=== PATIENT | male | born 1960 ===

== ENCOUNTER 2016-06-26 10:23 | Observation (INO) | payer MEDICARE ==
[2016-06-26 10:27] VITALS: BMI 30.9
--- NOTE | 2016-06-26 10:38 | ED PDOC ---
Arrival/HPI - General Chief Complaint: High Blood Pressure Time Seen by Provider: 06/26/16 10:26 Historian: Patient - History of Present Illness Narrative History of Present Illness (Text): 06/26/16 10:35 56yo male with PMHx of hypertension present with complaint of elevated BP, chest pain and tingling of his fingers x 5days. Pain is intermittent, tightness , and non reproductive. Denies exacerbating/relieving factors. States he is currently on Lisinopril and another antihypertensive. States he currently don't have a Doctor and have not seen any recently. Denies focal weakness, nausea, vomiting, diaphoresis, aphasia, headache, dizziness, visual changes, abdominal pain, LE edema, calf pain, AU, orthopnea, any other complaint. States he took one tab of ASA this morning, which he takes every day. Past Medical History - Provider Review Nursing Documentation Reviewed: Yes - Infectious Disease Hx of Infectious Diseases: None - Cardiac Hx Hypertension: Yes - Psychiatric Hx Substance Use: No - Surgical History Hx Appendectomy: Yes Other/Comment: disc surgery - Anesthesia Hx Anesthesia Reactions: No Hx Malignant Hyperthermia: No Family/Social History - Physician Review Nursing Documentation Reviewed: Yes Family/Social History: Unknown Family HX Smoking Status: Never Smoked Hx Alcohol Use: No Frequency of alcohol use: Socially Hx Substance Use: No Allergies/Home Meds Allergies/Adverse Reactions: Allergies No Known Allergies Allergy (Verified 06/26/16 10:27) Home Medications: Home Meds Medication Instructions Recorded Confirmed Aspirin [Ecotrin] 81 mg PO DAILY 06/26/16 06/26/16 Clopidogrel [Plavix] 75 mg PO DAILY 06/26/16 06/26/16 Lisinopril [Zestril] 40 mg PO DAILY 06/26/16 06/26/16 hydroCHLOROthiazide [Hydrodiuril] 25 mg PO DAILY 06/26/16 06/26/16 Review of Systems - Physician Review All systems were reviewed & negative as marked: Yes - Review of Systems Constitutional: Normal Eyes: Normal ENT: Normal Respiratory: Normal Cardiovascular: Chest Pain. absent: Palpitations, Edema, Calf Pain, AU, Orthopnea, Syncope Gastrointestinal: Normal Genitourinary Male: Normal Musculoskeletal: Normal Skin: Normal Neurological: Normal Endocrine: Normal Hemo/Lymphatic: Normal Psychiatric: Normal Physical Exam Vital Signs Reviewed: Yes Vital Signs Temp Pulse Pulse Resp BP Pulse Ox 06/26/16 13:29 80 18 168/101 H 99 06/26/16 12:44 80 16 170/102 H 99 06/26/16 12:37 72 182/104 H 06/26/16 12:13 79 16 170/116 H 95 06/26/16 10:45 77 06/26/16 10:23 98.2 F 89 16 187/115 H 97 Temperature: Afebrile Blood Pressure: Normal Pulse: Tachycardic Respiratory Rate: Normal Appearance: Positive for: Well-Appearing, Non-Toxic, Comfortable Pain Distress: None Mental Status: Positive for: Alert and Oriented X 3 - Systems Exam Head: Present: Atraumatic, Normocephalic Pupils: Present: PERRL Extroacular Muscles: Present: EOMI Conjunctiva: Present: Normal Mouth: Present: Moist Mucous Membranes Neck: Present: Normal Range of Motion Respiratory/Chest: Present: Clear to Auscultation, Good Air Exchange. No: Respiratory Distress, Accessory Muscle Use, Wheezes, Decreased Breath Sounds, Rales, Retracting, Rhonchi Cardiovascular: Present: Regular Rate and Rhythm, Normal S1, S2, Peripheal Pulses Present. No: Murmurs, Irregular Rhythm, Tachycardic, Bradycardic Abdomen: Present: Normal Bowel Sounds. No: Tenderness, Distention, Peritoneal Signs Back: Present: Normal Inspection Upper Extremity: Present: Normal Inspection. No: Cyanosis, Edema Lower Extremity: Present: Normal Inspection. No: Edema Neurological: Present: GCS=15, CN II-XII Intact, Speech Normal Skin: Present: Warm, Dry, Normal Color. No: Rashes Psychiatric: Present: Alert, Oriented x 3, Normal Insight, Normal Concentration Medical Decision Making ED Course and Treatment: 06/26/16 11:08 PT present with stated history. His BP was elevated in triage, but improved without medication while in ED. Cardiac lab was ordered and pending Chest xray - NAD EKG NSR with RBBB @81bpm with no ST changes. 06/26/16 12:33 On re evaluation pt's BP increased to 170/116 in ED. Labetalol was ordered. First CE was negative. Pt will however placed on OBS for repeat CE and further work up. Case was DW Dr. Hurd and he accepted pt into his service. Result and plan was DW the pt and he agreed. - Lab Interpretations Lab Results: 06/26/16 10:40 06/26/16 10:40 Lab Results 06/26/16 10:40: WBC 6.0, RBC 4.63, Hgb 14.9, Hct 43.8, MCV 94.6, MCH 32.2, MCHC 34.0, RDW 13.0, Plt Count 233, MPV 9.6, Gran % 58.7, Lymph % (Auto) 31.7, [place] % (Auto) 7.6 H, Eos % (Auto) 1.3 L, Baso % (Auto) 0.7, Gran # 3.50, Lymph # 1.9 , [place] # 0.5, Eos # 0.1, Baso # 0.04, PT 11.2, INR 1.04, APTT 26.4, D-Dimer, Quantitative 0.19, Sodium 135, Potassium 3.6, Chloride 99, Carbon Dioxide 27, Anion Gap 13, BUN 14, Creatinine 0.8, Est GFR ( Amer) > 60, Est GFR (Non- Af Amer) > 60, Random Glucose 142 H, Calcium 9.2, Magnesium 1.9, Total Bilirubin 0.9, AST 37, ALT 35, Alkaline Phosphatase 68, Lactate Dehydrogenase 471, Total Creatine Kinase 297 H, CK-MB (CK-2) 3.9 H, CK-MB (CK-2) % Cancelled, Troponin I 0.01, Total Protein 7.8, Albumin 4.0, Globulin 3.8, Albumin/Globulin Ratio 1.1, Triglycerides 210 H, Cholesterol 140, LDL Cholesterol Direct 56, HDL Cholesterol 47, Vitamin B12 Pending - RAD Interpretation Radiology Orders: 06/26/16 10:40 CHEST PORTABLE [RAD] Stat - EKG Interpretation Interpreted by ED Physician: Yes (NSR with RBBB @81bpm No ST changes) - Medication Orders Current Medication Orders: Acetaminophen (Tylenol 325mg Tab) 650 mg PO Q6 PRN PRN Reason: Fever >100.4 F Aspirin (Ecotrin) 81 mg PO DAILY ANN MARIE Clopidogrel Bisulfate (Plavix) 75 mg PO DAILY ANN MARIE Enoxaparin Sodium (Lovenox) 40 mg SC DAILY ANN MARIE PRN Reason: Protocol Famotidine (Pepcid) 20 mg PO DAILY ANN MARIE Hydrochlorothiazide (Hydrodiuril) 25 mg PO DAILY ANN MARIE Lisinopril (Zestril) 40 mg PO DAILY ANN MARIE Metoprolol Tartrate (Lopressor) 25 mg PO Q12 ANN MARIE Discontinued Medications Aspirin (Aspirin Chewable) 81 mg PO STAT STA Stop: 06/26/16 11:03 Last Admin: 06/26/16 11:41 Dose: 81 MG Labetalol HCl (Trandate) 20 mg IV STAT STA Stop: 06/26/16 12:26 Last Admin: 06/26/16 12:37 Dose: 20 MEQ MAR Pulse and Blood Pressure Document 06/26/16 12:37 CAROLIN (Rec: 06/26/16 12:44 [id number] Pulse Pulse Rate (60-90) 72 Blood Pressure Blood Pressure (100/60-150/90) 182/104 eMAR Start Stop Document 06/26/16 12:37 CAROLIN (Rec: 06/26/16 12:44 [id number]) Intravenous Solution Start Date 06/26/16 Start Time 12:37 End Date 06/26/16 End time 12:42 Total Infusion Time 5 Metoprolol Tartrate (Lopressor) 25 mg PO STAT STA Stop: 06/26/16 15:35 Disposition/Present on Arrival - Present on Arrival Any Indicators Present on Arrival: No History of DVT/PE: No History of Uncontrolled Diabetes: No Urinary Catheter: No History of Decub. Ulcer: No History Surgical Site Infection Following: None - Disposition Have Diagnosis and Disposition been Completed?: Yes Diagnosis: Uncontrolled hypertension, Chest pain Disposition: HOSPITALIZED Disposition Time: 12:25 Patient Problems: Current Active Problems Problem Status Diagnosed Chest pain Acute Uncontrolled hypertension Acute Condition: STABLE
[2016-06-26 10:54] LABS: ADD MANUAL DIFF? NO
--- NOTE | 2016-06-26 11:00 | RAD ---
HISTORY: Chest pain COMPARISON: No prior. FINDINGS: LUNGS: No active pulmonary disease. PLEURA: No significant pleural effusion identified, no pneumothorax apparent. CARDIOVASCULAR: Normal. OSSEOUS STRUCTURES: No significant abnormalities. VISUALIZED UPPER ABDOMEN: Normal. OTHER FINDINGS: None. IMPRESSION: No active disease.
[2016-06-26 11:12] LABS: INR 1.04 (0.93-1.08); PARTIAL THROMBOPLASTIN TIME 26.4 Seconds (23.7-30.8)
[2016-06-26 11:13] LABS: BASO # 0.04 K/mm3 (0.0-2.0); BASO % 0.7 % (0.0-3.0); EOS # 0.1 (0.0-0.7); EOS % 1.3 % (1.5-5.0); GRAN % 58.7 % (50.0-68.0); HEMATOCRIT 43.8 % (42.0-52.0); LYMPH # 1.9 (1.2-3.4); LYMPH % 31.7 % (22.0-35.0); MEAN CELL VOLUME 94.6 fL (80.0-105.0); MEAN CORPUSCULAR HEMOGLOBIN 32.2 pg (25.0-35.0); MEAN PLATELET VOLUME 9.6 fl (7.0-11.0); MONO # 0.5 (0.1-0.6); MONO % 7.6 % (1.0-6.0); PLATELET COUNT 233 10^3/uL (120.0-450.0)
[2016-06-26 11:14] LABS: ALB/GLOB RATIO 1.1 (1.1-1.8); ALKALINE PHOSPHATASE 68 U/L (38-133); ALT/SGPT 35 U/L (7-56); AST/SGOT 37 U/L (15-59); BILIRUBIN,TOTAL 0.9 mg/dL (0.2-1.3); BLOOD UREA NITROGEN 14 mg/dL (7-21); CALCIUM 9.2 mg/dL (8.4-10.5); CARBON DIOXIDE 27 mmol/L (21-33); CHLORIDE 99 mmol/L (98-107); GFR AFRICAN-AMERICAN > 60; GLUCOSE,RANDOM 142 mg/dL (70-110); MAGNESIUM 1.9 mg/dL (1.7-2.2); POTASSIUM 3.6 mmol/L (3.6-5.0); SODIUM 135 mmol/L (132-148); TOTAL PROTEIN 7.8 g/dL (5.8-8.3)
[2016-06-26 11:27] LABS: TROPONIN I 0.01 ng/mL
[2016-06-26 11:53] LABS: D DIMER 0.19 mg/L FEU (0-0.50)
[2016-06-26] MEDS ORDERED: Labetalol 5 mg/ml Inj 20ML IV STA (12:25)
[2016-06-26 15:41] LABS: CHOLESTEROL 140 mg/dL (130-200)
--- NOTE | 2016-06-26 15:49 | CP.PCM.HP ---
<Albertina Espana - Last Filed: 06/26/16 21:00> History of Present Illness - History of Present Illness History of Present Illness: Hospitalst H&P for Dr. Areli Cordero CC: chest discomfort, left shoulder pain, uncontrolled hypertension, numbness/ tingling in fingers BL PT is a 56M who just traveled from the [facility] Wednesday with PMH of HTN, MA, and chronic back pain s/p multiple back surgeries for disc degeneration who presented to the ER this AM with chest discomfort, HTN, and BL numbness and tingling in his fingers. Patient states that aroudn 10PM last night he began to have central/left chest tightness associated with BL tingling in his fingers and L shoulder pain. Patient states that this was an identical presentation to when he had an MA 2 years ago. Patient states that he took his BP at home today and it was 182/102 despite taking his BP medications so he came into the ED. At presentation his BP was 187/115. Patient denies SOB, cough , fevers, chills, vision changes, headache, focal weakness, palpitations, tachycardia, diaphoresis, nausea, vomiting, diarrhea, pedal edema, calf erythema or swelling, light headedness, or tearing back pain. At time of interview, patient had received ASA 81, labetolol, and BP had decreased to 168/ 107 and chest pain and numbness had resolved. Patient states he does a lot of push ups which may explain the shoulder pain, which is sharp and worse with movement. Reports he may have had an echocardiogram or stress test after the first MA but does not remember details, denies cardiac cath EKG showed NSR, RBBB, and no ST changes. CXR showed no acute disease. Initial trop was wnl at <0.1 PMH: HTN, MA, chronic back pain PSH: appendectomy, lumbar back surgeryx7 Home meds: Lisinopril 40PO DAILY, Plavix 75 PO DAILY, HCTZ 25 PO DAILY, ASA 81mg PO Daily ALL: NKDA FMH: sister of MA, extensive family members with HTN Social: denies tobacco, ETOH 3-7 drinks on the weekends, denies drug use, unemployed secondary to disability Present on Admission - Present on Admission Any Indicators Present on Admission: No Review of Systems - Review of Systems All systems: reviewed and no additional remarkable complaints except (as per HPI ) - Constitutional Constitutional: As Per HPI. absent: Chills, Excessive Sweating - EENT Eyes: As Per HPI Ears: absent: Ear Pain, Tinnitus Nose/Mouth/Throat: absent: Nasal Congestion, Nasal Discharge, Sore Throat - Cardiovascular Cardiovascular: As Per HPI. absent: Diaphoresis, Dyspnea - Respiratory Respiratory: As Per HPI. absent: Cough, Wheezing, Chest Congestion - Gastrointestinal Gastrointestinal: As Per HPI. absent: Abdominal Pain, Hematochezia, Melena - Genitourinary Genitourinary: absent: Dysuria, Hematuria - Musculoskeletal Musculoskeletal: As Per HPI. absent: Muscle Weakness, Neck Pain - Integumentary Integumentary: Change in Pigmentation ([place] on the abdomen and back) - Neurological Neurological: As Per HPI. absent: Disequilibrium, Dizziness - Psychiatric Psychiatric: As Per HPI - Endocrine Endocrine: absent: Excessive Sweating, Fatigue, Palpitations - Hematologic/Lymphatic Hematologic: absent: Easy Bleeding, Easy Bruising Past Patient History - Infectious Disease Hx of Infectious Diseases: None - Past Medical History & Family History Past Medical History?: Yes Pertinent Family History: Sister: MA-->. Brothers with HTN - Past Social History Smoking Status: Never Smoked Alcohol: Social (moderate-large intake on weekends) Drugs: Denies - CARDIAC Hx Cardiac Disorders: Yes Hx Heart Attack: Yes Hx Hypertension: Yes - MUSCULOSKELETAL/RHEUMATOLOGICAL Hx Back Pain: Yes - PSYCHIATRIC Hx Substance Use: No - SURGICAL HISTORY Hx Appendectomy: Yes Other/Comment: disc surgery x7 - ANESTHESIA Hx Anesthesia Reactions: No Hx Malignant Hyperthermia: No Meds Allergies/Adverse Reactions: Allergies Allergy/AdvReac Type Severity Reaction Status Date / Time No Known Allergies Allergy Verified 06/26/16 17:15 Physical Exam - Constitutional Appears: Well, Non-toxic, No Acute Distress - Head Exam Head Exam: ATRAUMATIC, NORMOCEPHALIC - Eye Exam Eye Exam: EOMI, Normal appearance, PERRL. absent: Conjunctival injection, Scleral icterus Pupil Exam: PERRL - ENT Exam ENT Exam: Mucous Membranes Moist, Normal Oropharynx - Neck Exam Neck exam: Positive for: Full Rom. Negative for: Tenderness - Respiratory Exam Respiratory Exam: Clear to Auscultation Bilateral, NORMAL BREATHING PATTERN. absent: Accessory Muscle Use, Chest Wall Tenderness, Respiratory Distress - Cardiovascular Exam Cardiovascular Exam: RRR, +S1, +S2, Systolic Murmur (II/IV systolic murmur) - GI/Abdominal Exam GI & Abdominal Exam: Soft. absent: Distended, Tenderness - Extremities Exam Extremities exam: Positive for: pedal pulses present. Negative for: calf tenderness, pedal edema, tenderness Additional comments: Adson test negative - Expanded Upper Extremities Exam Left Shoulder exam: full ROM (pain in the posterior shoulder with abduction, adduction and extension), tenderness (tender to palpation in the posterior shoulder). absent: deformity, dislocation, tenderness over AC joint - Back Exam Back exam: CVA tenderness (L), CVA tenderness (R) - Neurological Exam Neurological exam: Alert, CN II-XII Intact, Oriented x3 Additional comments: no motor-sensory defecits, 5/5 strenghts in all major muscle groups - Psychiatric Exam Psychiatric exam: Normal Affect, Normal Mood - Skin Skin Exam: Dry, Intact, Normal Color, Warm Results - Vital Signs Recent Vital Signs: Last Vital Signs Temp 98.2 F 06/26/16 10:23 Pulse 80 06/26/16 13:29 Resp 18 06/26/16 13:29 BP 168/101 H 06/26/16 13:29 Pulse Ox 99 06/26/16 13:29 - Labs Result Diagrams: 06/26/16 10:40 06/26/16 10:40 - EKG Data EKG Interpreted by: Other EKG shows normal: Sinus rhythm Rate: Normal - Imaging and Cardiology Chest x-ray Status: Image reviewed by me, Report reviewed by me Assessment & Plan - Assessment and Plan (Free Text) Assessment: 56M with PMH of HTN, MA, and chronic back pain presented to the ED with chest pain, finger numbness, and uncontrolled HTN for 12 hours 1. Chest pain EKG: NSR, RBBB, no ST-changes trop neg x1, elevated CKMB and total CK CXR: NAPD resolved with beta deborah Plan: ECHO EKG in the AM Trend cardiac iso's Add metoprolol 25 BID to control BP, restart home meds Continue plavix TSH, lipids Cardiology consult--appreciate recs 2. Uncontrolled HTN Improved but persistent hypertension Plan restart home Lisinopril 40PO DAILY, HCTZ 25 PO DAILY, ASA 81mg PO Daily, add metoprolol po 25 BID Close follow up Cardiology consult--recs appreciated TSH, lipids, b12 3. BL Finger numbness Possibly associated with chest pain Currently resolved Adson test negative for indication of thoracic outlet obstruction Plan: continue to monitor may consider further work up if recurs 4. L shoulder pain Worse with extension, abduction, and adduction Plan: apply ice as needed ASA 81 Further workup if persists r/o ACS 5. Back pain Chronic, unchanged Plan continue to follow analgesics if necessary Patient seen and discussed with Dr. Gil Espana, PGY1 <Areli Cordero - Last Filed: 06/27/16 17:42> Results - Vital Signs Recent Vital Signs: Last Vital Signs Temp 98.4 F 06/27/16 12:00 Pulse 83 06/27/16 12:00 Resp 18 06/27/16 12:00 BP 138/91 H 06/27/16 12:00 Pulse Ox 97 06/27/16 05:26 - Labs Result Diagrams: 06/27/16 07:41 06/27/16 07:41 Labs: Laboratory Results - last 24 hr 06/26/16 06/26/16 06/27/16 21:00 22:00 07:41 WBC 6.9 RBC 4.59 Hgb 14.9 Hct 43.5 MCV 94.8 MCH 32.5 MCHC 34.3 RDW 12.9 Plt Count 215 MPV 9.4 Gran % 56.7 Lymph % (Auto) 33.0 [place] % (Auto) 6.5 H Eos % (Auto) 3.2 Baso % (Auto) 0.6 Gran # 3.93 Lymph # 2.3 [place] # 0.5 Eos # 0.2 Baso # 0.04 D-Dimer, Quantitative 0.19 Sodium 137 Potassium 3.8 Chloride 96 L Carbon Dioxide 31 Anion Gap 14 BUN 12 Creatinine 1.0 Est GFR ( Amer) > 60 Est GFR (Non-Af Amer) > 60 Random Glucose 97 Calcium 9.2 Total Bilirubin 0.8 AST 28 ALT 34 Alkaline Phosphatase 55 Lactate Dehydrogenase 390 383 Total Creatine Kinase 197 157 Troponin I < 0.01 < 0.01 Total Protein 7.6 Albumin 3.9 Globulin 3.7 Albumin/Globulin Ratio 1.1 Urine Color Yellow Urine Appearance Clear Urine pH 6.0 Ur Specific [place] 1.020 Urine Protein Negative Urine Glucose (UA) Negative Urine Ketones Negative Urine Blood Negative Urine Nitrate Negative Urine Bilirubin Negative Urine Urobilinogen 0.2 Ur Leukocyte Esterase Negative Urine Opiates Screen Negative Urine Methadone Screen Negative Ur Barbiturates Screen Negative Ur Phencyclidine Scrn Negative Ur Amphetamines Screen Negative U Benzodiazepines Scrn Negative U Oth Cocaine Metabols Negative U Cannabinoids Screen Negative Attending/Attestation - Attestation I have personally seen and examined this patient.: Yes I have fully participated in the care of the patient.: Yes I have reviewed all pertinent clinical information: Yes Notes (Text): I have seen and examined patient at bedside. This is 56 year old male who is visiting from with history of HTN, MA, chronic back pain, multiple back surgeries for degenerative disc disease who got admitted for evaluation of chest pain and numbness of fingers. Upon admission, he was found to have uncontrolled HTN. Patient will be admitted to tele fitch. Fiest troponin is negative. EKG did not show any acute changes. Will monitor patient for serial cardiac iso, echocardiogram and cardiology consult. Will check lipid panel. Will adjust BP medications. Upon discharge patient will follow up with [facility]. Dr Areli Cordero
[2016-06-26] MEDS ORDERED: Pneumococcal 23-Valent Vaccine IM ONE (18:40)
[2016-06-26 21:12] LABS: URINE BILIRUBIN NEGATIVE (NEGATIVE); URINE BLOOD NEGATIVE (NEGATIVE); URINE GLUCOSE (UA) NEGATIVE (NEGATIVE); URINE KETONE NEGATIVE (NEGATIVE); URINE LEUKOCYTE ESTERASE NEGATIVE Leu/uL (NEGATIVE); URINE PROTEIN NEGATIVE mg/dL (<30 mg/dL); URINE UROBILINOGEN 0.2 E.U./dL (<1 E.U./dL)
[2016-06-26 21:14] LABS: URINE APPEARANCE CLEAR (CLEAR); URINE COLOR YELLOW (YELLOW)
[2016-06-26 22:54] LABS: TROPONIN I < 0.01 ng/mL
[2016-06-27 07:44] LABS: ADD MANUAL DIFF? NO
[2016-06-27 07:58] LABS: ALB/GLOB RATIO 1.1 (1.1-1.8); ALKALINE PHOSPHATASE 55 U/L (38-133); ALT/SGPT 34 U/L (7-56); AST/SGOT 28 U/L (15-59); BASO # 0.04 K/mm3 (0.0-2.0); BASO % 0.6 % (0.0-3.0); BILIRUBIN,TOTAL 0.8 mg/dL (0.2-1.3); BLOOD UREA NITROGEN 12 mg/dL (7-21); CALCIUM 9.2 mg/dL (8.4-10.5); CARBON DIOXIDE 31 mmol/L (21-33); CHLORIDE 96 mmol/L (98-107); EOS # 0.2 (0.0-0.7); EOS % 3.2 % (1.5-5.0); GFR AFRICAN-AMERICAN > 60; GLUCOSE,RANDOM 97 mg/dL (70-110); GRAN # 3.93 (1.4-6.5); GRAN % 56.7 % (50.0-68.0); HEMATOCRIT 43.5 % (42.0-52.0); LYMPH # 2.3 (1.2-3.4); MEAN CELL VOLUME 94.8 fL (80.0-105.0); MEAN CORPUSCULAR HEMOGLOBIN 32.5 pg (25.0-35.0); MEAN CORPUSCULAR HGB CONC 34.3 g/dl (31.0-37.0); MEAN PLATELET VOLUME 9.4 fl (7.0-11.0); MONO # 0.5 (0.1-0.6); MONO % 6.5 % (1.0-6.0); PLATELET COUNT 215 10^3/uL (120.0-450.0); POTASSIUM 3.8 mmol/L (3.6-5.0); RED CELL DISTRIBUTION WIDTH 12.9 % (11.5-14.5); SODIUM 137 mmol/L (132-148); TOTAL PROTEIN 7.6 g/dL (5.8-8.3); WHITE BLOOD COUNT 6.9 10^3/ul (4.5-11.0)
[2016-06-27 08:33] LABS: TROPONIN I < 0.01 ng/mL
[2016-06-27] MEDS: Enoxaparin 40 mg Syringe SC SCH (09:53)
--- NOTE | 2016-06-27 11:03 | CON ---
DATE: 06/27/2016 INDICATIONS: Chest pain, hypertension. HISTORY OF PRESENT ILLNESS: This is a 56-year-old man with a history of a myocardial infarction and hypertension who was admitted yesterday through the Emergency Room when he presented with chest discomfort and left arm numbness. The chest pain was severe at times and reminded him of symptoms he had at the time of a heart attack several years ago. It was not associated with shortness of breath. It did associate with left arm numbness and tingling. He was markedly hypertensive in the Emergency Room. He was treated with labetalol and other antihypertensives. His chest pain resolved. Cardiac enzymes have been negative. There is no orthopnea, PND, syncope, presyncope, lightheadedness, dizziness, vertigo, palpitations, edema, claudication, fever, chills, cough, sputum production, hemoptysis, abdominal pain, nausea, vomiting, diarrhea, constipation , melena. PAST MEDICAL HISTORY: Notable for chronic back pain, an appendectomy, but no rheumatic fever, diabetes, stroke, TIA, arrhythmia, congestive heart failure or gout. He was hospitalized several years ago for a "heart attack" but he does not think he had a cardiac cath and he does not recall many details. He states that he was in the hospital for one week. MEDICATIONS: At the time of admission included lisinopril, Plavix, hydrochlorothiazide, aspirin. ALLERGIES: There are no medication allergies. SOCIAL HISTORY: He lives at home. He is ambulatory. He is disabled. Does not smoke cigarettes. He drinks alcohol frequently on weekends. FAMILY HISTORY: Positive for heart disease and hypertension. REVIEW OF SYSTEMS: Ten point review of systems otherwise unremarkable except as noted above. PHYSICAL EXAMINATION: GENERAL: He is a well-developed male lying in bed in telemetry, in no acute distress. VITAL SIGNS: Include sinus rhythm. He is afebrile. Blood pressure 147/94, respirations 18-22, O2 sat 97%-99% on room air. HEENT: Reveals no neck vein distention, thyromegaly, or carotid bruits. Mucous membranes are moist. Conjunctivae are pink. NECK: Supple. LUNGS: Funes clear. HEART: Revealed normal first and second heart sounds without murmur, gallop, rub or click. ABDOMEN: Soft, bowel sounds present. No mass, organomegaly, tenderness, rebound, or guarding. No CVA tenderness. No palpable abdominal aortic aneurysm. EXTREMITIES: Revealed no cyanosis, clubbing, or edema. NEUROLOGIC: He was awake, alert, oriented and intact. PSYCHIATRIC: Normal as to mood and affect. SKIN: Warm and dry. No rash or cellulitis. LABORATORY AND IMAGING: A chest x-ray with a portable study reveals no active disease. EKG demonstrates regular sinus rhythm with right bundle branch block and leftward axis. CBC is unremarkable. PT, INR, PTT, D-dimer unremarkable. Electrolytes, BUN, creatinine, blood sugar unremarkable. LFTs unremarkable. Three troponins are negative. CK was 297, repeat 197, repeat 157. Cholesterol 140, LDL 56, triglycerides 210, HDL 47. TSH is normal. Urinalysis is unremarkable. Toxic screen is negative. IMPRESSION: The patient is a 56-year-old man with a remote history of myocardial infarction (details of workup at that time unavailable) who presents with chest pain reminiscent of prior cardiac pain which radiates into the left arm with numbness and tingling, history of back pain and hypertension with accelerated hypertension at the time of admission. At this time, I agree with current plans. He is on telemetry. He has received aspirin. He is on hydrochlorothiazide, metoprolol, Lovenox, Pepcid, Plavix and lisinopril. I will repeat his EKG. I have ordered an echocardiogram. He should be considered for nuclear stress testing which can be on an outpatient basis if he stabilizes without further chest pain. He can be out of bed. He should be on a no-added salt, low saturated fat diet. I will follow along with you. I will make additional recommendations based on his clinical course. Renaldo Del Real MD cc: [id number] TT: 06/27/2016 11:02:39 Confirmation # [id number] Dictation # [id number] kaylyn TILLMAN
--- NOTE | 2016-06-27 11:13 | CARD ---
APPROVED REPORT EKG Measurement Heart [id number] ID [id number] <Conclusion> Normal sinus rhythm Right bundle branch block Leftward axis
--- NOTE | 2016-06-27 23:23 | CP.PCM.PN ---
<Cheryl Lawrence - Last Filed: 06/27/16 23:40> Subjective - Date & Time of Evaluation Date of Evaluation: 06/27/16 Time of Evaluation: 08:55 - Subjective Subjective: Pt seen and evaluated at the bedside. Denies FARR, vision changes, chest pain, leg swelling. Objective - Vital Signs/Intake and Output Vital Signs (last 24 hours): Temp Pulse Resp BP Pulse Ox 98.7 F 76 20 123/87 98 06/27/16 17:11 06/27/16 21:42 06/27/16 17:11 06/27/16 17:11 06/27/16 17:11 Intake and Output: 06/27/16 06/28/16 18:59 06:59 Intake Total 660 Output Total 500 Balance 160 - Medications Medications: Current Medications Acetaminophen (Tylenol 325mg Tab) 650 mg PO Q6 PRN PRN Reason: Fever >100.4 F Aspirin (Ecotrin) 81 mg PO DAILY [facility] Last Admin: 06/27/16 09:54 Dose: 81 mg Clopidogrel Bisulfate (Plavix) 75 mg PO DAILY [facility] Last Admin: 06/27/16 09:54 Dose: 75 mg Enoxaparin Sodium (Lovenox) 40 mg SC DAILY [facility] PRN Reason: Protocol Last Admin: 06/27/16 09:53 Dose: 40 mg Famotidine (Pepcid) 20 mg PO DAILY [facility] Last Admin: 06/27/16 09:54 Dose: 20 mg Hydrochlorothiazide (Hydrodiuril) 25 mg PO DAILY [facility] Last Admin: 06/27/16 09:54 Dose: 25 mg Lisinopril (Zestril) 40 mg PO DAILY [facility] Last Admin: 06/27/16 09:54 Dose: 40 mg Metoprolol Tartrate (Lopressor) 25 mg PO Q12 [facility] Last Admin: 06/27/16 21:26 Dose: 25 mg - Labs Labs: PT 11.2 Seconds (9.9-11.8) 06/26/16 10:40 INR 1.04 (0.93-1.08) 06/26/16 10:40 APTT 26.4 Seconds (23.7-30.8) 06/26/16 10:40 - Additional Findings Additional findings: - Constitutional Appears: Well, Non-toxic, No Acute Distress - Head Exam Head Exam: ATRAUMATIC, NORMOCEPHALIC - Eye Exam Eye Exam: EOMI, Normal appearance, PERRL. absent: Conjunctival injection, Scleral icterus Pupil Exam: PERRL - ENT Exam ENT Exam: Mucous Membranes Moist, Normal Oropharynx - Neck Exam Neck exam: Positive for: Full Rom. Negative for: Tenderness - Respiratory Exam Respiratory Exam: Clear to Auscultation Bilateral, NORMAL BREATHING PATTERN. absent: Respiratory Distress - Cardiovascular Exam Cardiovascular Exam: RRR, +S1, +S2, Systolic Murmur (II/IV systolic murmur) - GI/Abdominal Exam GI & Abdominal Exam: Soft. absent: Distended, Tenderness - Extremities Exam Extremities exam: Positive for: pedal pulses present. Negative for: calf tenderness - Expanded Upper Extremities Exam Left Shoulder exam: full ROM (pain in the posterior shoulder with abduction, adduction and extension), tenderness (tender to palpation in the posterior shoulder). absent: deformity, dislocation, tenderness over AC joint - Back Exam Back exam: CVA tenderness (L), CVA tenderness (R) - Neurological Exam Neurological exam: Alert, Oriented x3 Additional comments: no motor-sensory defecits, 5/5 strenghts in all major muscle groups - Psychiatric Exam Psychiatric exam: Normal Affect, Normal Mood - Skin Skin Exam: Normal Color, Warm Assessment and Plan - Assessment and Plan (Free Text) Plan: 56M with PMH of HTN, PR, and chronic back pain presented to the ED with chest pain, finger numbness, and uncontrolled HTN for 12 hours 1. Chest pain EKG: NSR, RBBB, no ST-changes trop neg x2, elevated CKMB and total CK CXR: NAPD resolved with beta deborah Plan: ECHO metoprolol 25 BID to control BP Continue plavix TSH wnl, lipids wnl except high triglycerides, B12 wnl atorvastatin 10 started Cardiology consult: no added salt and low saturated fat diet. After ECHO, and resolution of chest pain and stable, can have outpatient nuc stress test. 2. Uncontrolled HTN Improved but persistent hypertension Plan Lisinopril 40PO DAILY, HCTZ 25 PO DAILY, ASA 81mg PO Daily, metoprolol po 25 BID Close follow up Cardiology consult--recs appreciated 3. BL Finger numbness Possibly associated with chest pain Currently resolved Plan: continue to monitor 4. L shoulder pain Worse with extension, abduction, and adduction Plan: apply ice as needed ASA 81 Further workup if persists 5. Back pain Chronic, unchanged Plan continue to follow Patient seen and discussed with Dr. Gil Salinas, PGY1 <Areli Cordero - Last Filed: 06/28/16 11:00> Objective - Vital Signs/Intake and Output Vital Signs (last 24 hours): Temp Pulse Resp BP Pulse Ox 97.8 F 81 18 134/83 100 06/28/16 06:00 06/28/16 10:14 06/28/16 06:00 06/28/16 10:14 06/28/16 06:00 Intake and Output: 06/28/16 06/28/16 06:59 18:59 Intake Total 660 Output Total 500 Balance 160 - Medications Medications: Current Medications Acetaminophen (Tylenol 325mg Tab) 650 mg PO Q6 PRN PRN Reason: Fever >100.4 F Amlodipine Besylate (Norvasc) 5 mg PO DAILY [facility] Last Admin: 06/28/16 10:14 Dose: 5 mg Aspirin (Ecotrin) 81 mg PO DAILY [facility] Last Admin: 06/28/16 10:12 Dose: 81 mg Atorvastatin Calcium (Lipitor) 10 mg PO DIN [facility] Clopidogrel Bisulfate (Plavix) 75 mg PO DAILY [facility] Last Admin: 06/28/16 10:12 Dose: 75 mg Enoxaparin Sodium (Lovenox) 40 mg SC DAILY [facility] PRN Reason: Protocol Last Admin: 06/28/16 10:12 Dose: 40 mg Famotidine (Pepcid) 20 mg PO DAILY [facility] Last Admin: 06/28/16 10:12 Dose: 20 mg Hydrochlorothiazide (Hydrodiuril) 25 mg PO DAILY [facility] Last Admin: 06/28/16 10:12 Dose: 25 mg Lisinopril (Zestril) 40 mg PO DAILY [facility] Last Admin: 06/28/16 10:13 Dose: Not Given Metoprolol Tartrate (Lopressor) 25 mg PO Q12 [facility] Last Admin: 06/28/16 10:13 Dose: 25 mg - Labs Labs: 06/28/16 07:22 06/28/16 07:22 PT 11.2 Seconds (9.9-11.8) 06/26/16 10:40 INR 1.04 (0.93-1.08) 06/26/16 10:40 APTT 26.4 Seconds (23.7-30.8) 06/26/16 10:40 Attending/Attestation - Attestation I have personally seen and examined this patient.: Yes I have fully participated in the care of the patient.: Yes I have reviewed all pertinent clinical information, including history, physical exam and plan: Yes Notes (Text): I have seen and examined patient with the resident. Agree with the residents note with the following additions/ exception: This is 56 year old male with history of HTN, PR in the past who got admitted for evaluation of chest pain, fingers numbness/ tingling and found to have uncontrolled hypertension upon admission. EKG and troponin were within normal limits. ECho is done but reading is pending. Chest pain has resolved. BP has improved. Lopressor added to HCTZ and lisinopril. Upon discharge patient will follow up in [facility] clinic. Dr Areli Cordero
[2016-06-28 06:26] VITALS: O2SAT 100
[2016-06-28 07:23] LABS: ADD MANUAL DIFF? NO
[2016-06-28 07:34] LABS: BASO # 0.04 K/mm3 (0.0-2.0); BASO % 0.6 % (0.0-3.0); EOS # 0.2 (0.0-0.7); EOS % 2.8 % (1.5-5.0); GRAN # 3.81 (1.4-6.5); GRAN % 52.9 % (50.0-68.0); HEMATOCRIT 42.7 % (42.0-52.0); LYMPH # 2.6 (1.2-3.4); LYMPH % 35.9 % (22.0-35.0); MEAN CELL VOLUME 93.8 fL (80.0-105.0); MEAN CORPUSCULAR HEMOGLOBIN 32.1 pg (25.0-35.0); MEAN CORPUSCULAR HGB CONC 34.2 g/dl (31.0-37.0); MEAN PLATELET VOLUME 9.2 fl (7.0-11.0); MONO # 0.6 (0.1-0.6); MONO % 7.8 % (1.0-6.0); PLATELET COUNT 217 10^3/uL (120.0-450.0); RED CELL DISTRIBUTION WIDTH 12.9 % (11.5-14.5); WHITE BLOOD COUNT 7.2 10^3/ul (4.5-11.0)
--- NOTE | 2016-06-28 08:04 | CP.PCM.PN ---
Subjective - Date & Time of Evaluation Date of Evaluation: 06/28/16 Time of Evaluation: 08:00 - Subjective Subjective: Stable on 2R. No CP or SOB. BP elevated. V/S noted. RSR PE: Lungs: clear Cor.: S1S2 Abd.: soft Ext.: no edema Neuro.: alert I/O= 660/500 Labs 06/27 noted. Today's labs pending. Echo done. Will read. prelim>Nl LV.. See full report Objective - Vital Signs/Intake and Output Vital Signs (last 24 hours): Temp Pulse Resp BP Pulse Ox 97.8 F 73 18 143/102 H 100 06/28/16 06:00 06/28/16 06:00 06/28/16 06:00 06/28/16 06:00 06/28/16 06:00 Intake and Output: 06/28/16 06/28/16 06:59 18:59 Intake Total 660 Output Total 500 Balance 160 - Medications Medications: Current Medications Acetaminophen (Tylenol 325mg Tab) 650 mg PO Q6 PRN PRN Reason: Fever >100.4 F Aspirin (Ecotrin) 81 mg PO DAILY [facility] Last Admin: 06/27/16 09:54 Dose: 81 mg Atorvastatin Calcium (Lipitor) 10 mg PO DIN [facility] Clopidogrel Bisulfate (Plavix) 75 mg PO DAILY [facility] Last Admin: 06/27/16 09:54 Dose: 75 mg Enoxaparin Sodium (Lovenox) 40 mg SC DAILY [facility] PRN Reason: Protocol Last Admin: 06/27/16 09:53 Dose: 40 mg Famotidine (Pepcid) 20 mg PO DAILY [facility] Last Admin: 06/27/16 09:54 Dose: 20 mg Hydrochlorothiazide (Hydrodiuril) 25 mg PO DAILY [facility] Last Admin: 06/27/16 09:54 Dose: 25 mg Lisinopril (Zestril) 40 mg PO DAILY [facility] Last Admin: 06/28/16 05:35 Dose: 40 mg Metoprolol Tartrate (Lopressor) 25 mg PO Q12 [facility] Last Admin: 06/27/16 21:26 Dose: 25 mg - Labs Labs: 06/28/16 07:22 PT 11.2 Seconds (9.9-11.8) 06/26/16 10:40 INR 1.04 (0.93-1.08) 06/26/16 10:40 APTT 26.4 Seconds (23.7-30.8) 06/26/16 10:40 Assessment and Plan - Assessment and Plan (Free Text) Plan: Assessment: CP with radiation into left arm HBP H/O ND Chronic back pain RBBB S/P appendectomy Plan: Will review echo Add amlodipine 5 mg./day OOB Nuclear stress test tomorrow
[2016-06-28 08:28] LABS: ALKALINE PHOSPHATASE 52 U/L (38-133); ALT/SGPT 30 U/L (7-56); AST/SGOT 27 U/L (15-59); BILIRUBIN,TOTAL 0.9 mg/dL (0.2-1.3); BLOOD UREA NITROGEN 16 mg/dL (7-21); CARBON DIOXIDE 31 mmol/L (21-33); CHLORIDE 95 mmol/L (98-107); GFR AFRICAN-AMERICAN > 60; GLUCOSE,RANDOM 96 mg/dL (70-110); POTASSIUM 3.5 mmol/L (3.6-5.0); SODIUM 135 mmol/L (132-148); TOTAL PROTEIN 7.7 g/dL (5.8-8.3)
--- NOTE | 2016-06-28 08:55 | CARD ---
APPROVED REPORT EXAM: Two-dimensional and M-mode echocardiogram with Doppler and color Doppler. Other Information Quality : AverageRhythm : INDICATION Chest Pain , H/O WA 2D DIMENSIONS Left Atrium (2D)3.0 (1.6-4.0cm)IVSd1.0 (0.7-1.1cm) LVDd5.1 (3.9-5.9cm)PWd1.0 (0.7-1.1cm) LVDs3.4 (2.5-4.0cm)FS (%) 33.3 % LVEF (%)61.0 (>50%) M-Mode DIMENSIONS Aortic Root3.40 (2.2-3.7cm)Aortic Cusp Exc.2.20 (1.5-2.0cm) Aortic Valve AoV Peak Iyleicbl646.0cm/sAoV VTI22.1cmLVOT Peak Vdkqxdia91.0cm/s LVOT VTI15.80cm Mitral Valve MV E Imjmohvg06.5cm/sMV A Ksfotinp77.4cm/sE/A ratio0.5 TDI Lateral E' Peak V11.40cm/sMedial E' Peak V5.95cm/sE/Lateral E'3.6 E/Medial E'6.8 Tricuspid Valve TR Peak Vyoizcjo904jh/sTR Peak Gr.23mmHg LEFT VENTRICLE The left ventricle is normal size. There is normal left ventricular wall thickness. The left ventricular function is normal. The left ventricular ejection fraction is within the normal range. There is normal LV segmental wall motion. RIGHT VENTRICLE The right ventricle is normal size. ATRIA The left atrium size is normal. The right atrium size is normal. The interatrial septum is intact with no evidence for an atrial septal defect. AORTIC VALVE The aortic valve is normal in structure. MITRAL VALVE The mitral valve is normal in structure. Mitral regurgitation is trace. TRICUSPID VALVE The tricuspid valve is normal in structure. There is trace tricuspid regurgitation. PULMONIC VALVE The pulmonic valve is not well visualized. GREAT VESSELS The aortic root is normal in size. PERICARDIAL EFFUSION There is no pericardial effusion. <Conclusion> The left ventricle is normal size. There is normal left ventricular wall thickness. The left ventricular function is normal.
--- NOTE | 2016-06-28 09:31 | CARD ---
APPROVED REPORT EKG Measurement Heart [id number] <Conclusion> Normal sinus rhythm Right bundle branch block No change
[2016-06-28] MEDS: Enoxaparin 40 mg Syringe SC SCH (10:12)
[2016-06-28 11:42] VITALS: RESP 20; TEMP 97.2
[2016-06-28 12:43] VITALS: BP 133/80; PULSE 78
--- NOTE | 2016-06-28 14:48 | CP.PCM.DIS ---
<PauletteMaite - Last Filed: 06/28/16 15:36> Provider - Provider Date of Admission: 06/27/16 17:42 Attending physician: Areli Cordero MD Primary care physician: NO PRIMARY CARE PROVIDER Consults: Cardio: dr. Del Real Time Spent in preparation of Discharge (in minutes): 45 Diagnosis - Discharge Diagnosis (1) Chest pain Status: Acute (2) Uncontrolled hypertension Status: Acute (3) CAD (coronary artery disease) Status: Chronic Hospital Course - Lab Results Lab Results: Most Recent Lab Values WBC 7.2 10^3/ul (4.5-11.0) 06/28/16 07:22 RBC 4.55 10^6/uL (3.5-6.1) 06/28/16 07:22 Hgb 14.6 gm/dL (14.0-18.0) 06/28/16 07:22 Hct 42.7 % (42.0-52.0) 06/28/16 07:22 MCV 93.8 fL (80.0-105.0) 06/28/16 07:22 MCH 32.1 pg (25.0-35.0) 06/28/16 07:22 MCHC 34.2 g/dl (31.0-37.0) 06/28/16 07:22 RDW 12.9 % (11.5-14.5) 06/28/16 07:22 Plt Count 217 10^3/uL (120.0-450.0) 06/28/16 07:22 MPV 9.2 fl (7.0-11.0) 06/28/16 07:22 Gran % 52.9 % (50.0-68.0) 06/28/16 07:22 Lymph % (Auto) 35.9 % (22.0-35.0) H 06/28/16 07:22 [place] % (Auto) 7.8 % (1.0-6.0) H 06/28/16 07:22 Eos % (Auto) 2.8 % (1.5-5.0) 06/28/16 07:22 Baso % (Auto) 0.6 % (0.0-3.0) 06/28/16 07:22 Gran # 3.81 (1.4-6.5) 06/28/16 07:22 Lymph # 2.6 (1.2-3.4) 06/28/16 07:22 [place] # 0.6 (0.1-0.6) 06/28/16 07:22 Eos # 0.2 (0.0-0.7) 06/28/16 07:22 Baso # 0.04 K/mm3 (0.0-2.0) 06/28/16 07:22 PT 11.2 Seconds (9.9-11.8) 06/26/16 10:40 INR 1.04 (0.93-1.08) 06/26/16 10:40 APTT 26.4 Seconds (23.7-30.8) 06/26/16 10:40 D-Dimer, Quantitative 0.19 mg/L FEU (0-0.50) 06/26/16 22:00 Sodium 135 mmol/L (132-148) 06/28/16 07:22 Potassium 3.5 mmol/L (3.6-5.0) L 06/28/16 07:22 Chloride 95 mmol/L (98-107) L 06/28/16 07:22 Carbon Dioxide 31 mmol/L (21-33) 06/28/16 07:22 Anion Gap 13 (10-20) 06/28/16 07:22 BUN 16 mg/dL (7-21) 06/28/16 07:22 Creatinine 0.9 mg/dL (0.5-1.4) 06/28/16 07:22 Est GFR ( Amer) > 60 06/28/16 07:22 Est GFR (Non-Af Amer) > 60 06/28/16 07:22 Random Glucose 96 mg/dL (70-110) 06/28/16 07:22 Hemoglobin A1c 6.0 % (4.2-6.5) 06/26/16 10:40 Calcium 9.0 mg/dL (8.4-10.5) 06/28/16 07:22 Magnesium 1.9 mg/dL (1.7-2.2) 06/26/16 10:40 Total Bilirubin 0.9 mg/dL (0.2-1.3) 06/28/16 07:22 AST 27 U/L (15-59) 06/28/16 07:22 ALT 30 U/L (7-56) 06/28/16 07:22 Alkaline Phosphatase 52 U/L (38-133) 06/28/16 07:22 Lactate Dehydrogenase 383 U/L (333-699) 06/27/16 07:41 Total Creatine Kinase 157 U/L (35-230) 06/27/16 07:41 CK-MB (CK-2) 3.9 ng/mL (0.0-3.6) H 06/26/16 10:40 CK-MB (CK-2) % Cancelled 06/26/16 10:40 Troponin I < 0.01 ng/mL 06/27/16 07:41 Total Protein 7.7 g/dL (5.8-8.3) 06/28/16 07:22 Albumin 3.9 g/dL (3.0-4.8) 06/28/16 07:22 Globulin 3.8 gm/dL 06/28/16 07:22 Albumin/Globulin Ratio 1.0 (1.1-1.8) L 06/28/16 07:22 Triglycerides 210 mg/dL (35-160) H 06/26/16 10:40 Cholesterol 140 mg/dL (130-200) 06/26/16 10:40 LDL Cholesterol Direct 56 mg/dL (0-129) 06/26/16 10:40 HDL Cholesterol 47 mg/dL (29-60) 06/26/16 10:40 Vitamin B12 315 pg/mL (239-931) 06/26/16 10:40 TSH 3rd Generation 1.18 mIU/mL (0.46-4.68) 06/26/16 10:40 Urine Color Yellow (YELLOW) 06/26/16 21:00 Urine Appearance Clear (CLEAR) 06/26/16 21:00 Urine pH 6.0 (4.7-8.0) 06/26/16 21:00 Ur Specific [place] 1.020 (1.005-1.035) 06/26/16 21:00 Urine Protein Negative mg/dL (<30 mg/dL) 06/26/16 21:00 Urine Glucose (UA) Negative mg/dL (NEGATIVE) 06/26/16 21:00 Urine Ketones Negative mg/dL (NEGATIVE) 06/26/16 21:00 Urine Blood Negative (NEGATIVE) 06/26/16 21:00 Urine Nitrate Negative (NEGATIVE) 06/26/16 21:00 Urine Bilirubin Negative (NEGATIVE) 06/26/16 21:00 Urine Urobilinogen 0.2 E.U./dL (<1 E.U./dL) 06/26/16 21:00 Ur Leukocyte Esterase Negative Zahida/uL (NEGATIVE) 06/26/16 21:00 Urine Opiates Screen Negative (NEGATIVE) 06/26/16 21:00 Urine Methadone Screen Negative (NEGATIVE) 06/26/16 21:00 Ur Barbiturates Screen Negative (NEGATIVE) 06/26/16 21:00 Ur Phencyclidine Scrn Negative (NEGATIVE) 06/26/16 21:00 Ur Amphetamines Screen Negative (NEGATIVE) 06/26/16 21:00 U Benzodiazepines Scrn Negative (NEGATIVE) 06/26/16 21:00 U Oth Cocaine Metabols Negative (NEGATIVE) 06/26/16 21:00 U Cannabinoids Screen Negative (NEGATIVE) 06/26/16 21:00 - Hospital Course Hospital Course: PT is a 56M who just traveled from the [facility] Wednesday with PMH of HTN, AR, and chronic back pain s/p multiple back surgeries for disc degeneration who presented to the ER this AM with chest discomfort, HTN, and BL numbness and tingling in his fingers. Patient states that around 10PM last night he began to have central/left chest tightness associated with BL tingling in his fingers and L shoulder pain. Patient states that this was an identical presentation to when he had an AR 2 years ago. Patient states that he took his BP at home today and it was 182/102 despite taking his BP medications so he came into the ED. At presentation his BP was 187/115. Patient denies SOB, cough , fevers, chills, vision changes, headache, focal weakness, palpitations, tachycardia, diaphoresis, nausea, vomiting, diarrhea, pedal edema, calf erythema or swelling, light headedness, or tearing back pain. At time of interview, patient had received ASA 81, labetolol, and BP had decreased to 168/ 107 and chest pain and numbness had resolved. Patient states he does a lot of push ups which may explain the shoulder pain, which is sharp and worse with movement. Reports he may have had an echocardiogram or stress test after the first AR but does not remember details, denies cardiac cath. EKG on presentation showed NSR, RBBB, and no ST changes. CXR showed no acute disease. Serial troponins were negative. Echo showed EF of 61% with normal LV function and structure. Lipid panel was normal and HgbA1c was 6.0. Patient was advised to control diet and exercise. Cardiology was consulted and recommended a nuclear stress test. Patient was adamant about being discharged so was told to return tomorrow for stress test. You are discharged. Please eat a no added salt and low saturated fat diet. After discharge, please follow-up with your primary physician or Dr. Del Real for a nuclear stress test. Discussed risks and adverse effects of ETOH use and recommended cessation. Patient is discharged with the following medications: Aspirin 81 mg QD #30 tabs , Lipitor 10 mg PO DIN #30, Plavix 75 mg PO QD #30, Hyrochlorothiazide 25 mg PO QD #30, Lisinopril 40 mg PO QD #30, Metropolol 25 mg PO Q12 #60, Norvasc 5 mg PO QD #30. Scripts are sent to [facility]. Patient is given script for Tramadol 50 mg PO TID #15 tabs. - Date & Time of H&P Date of H&P: 06/28/16 Time of H&P: 15:36 Discharge Exam - Head Exam Head Exam: ATRAUMATIC, NORMOCEPHALIC - ENT Exam ENT Exam: Mucous Membranes Moist - Respiratory Exam Respiratory Exam: Clear to PA & Lateral, NORMAL BREATHING PATTERN. absent: Rales, Rhonchi, Wheezes - Cardiovascular Exam Cardiovascular Exam: REGULAR RHYTHM, +S1, +S2. absent: Diastolic murmur, Gallop , Rubs, Systolic Murmur - GI/Abdominal Exam GI & Abdominal Exam: Normal Bowel Sounds, Soft. absent: Distended, Firm, Guarding, Rigid, Tenderness - Extremities Exam Additional comments: no edema or tenderness - Neurological Exam Neurological exam: Alert, Oriented x3 - Psychiatric Exam Psychiatric exam: Normal Affect, Normal Mood - Skin Skin Exam: Dry, Intact, Normal Color, Warm Discharge Plan - Discharge Medications Prescriptions: Aspirin [Ecotrin] 81 mg PO DAILY #30 tabec hydroCHLOROthiazide [Hydrodiuril] 25 mg PO DAILY #30 tab Atorvastatin [Lipitor] 10 mg PO DIN #30 tab Metoprolol Tartrate [Lopressor] 25 mg PO Q12 #60 tab amLODIPine [Norvasc] 5 mg PO DAILY #30 tab Clopidogrel [Plavix] 75 mg PO DAILY #30 tab traMADol [Ultram] 50 mg PO TID #15 tab Lisinopril [Zestril] 40 mg PO DAILY #30 tab - Follow Up Plan Condition: STABLE Disposition: HOME/ ROUTINE Instructions: Chest Pain (DC), Heart Healthy Diet (DC), Heart Healthy Diet (GEN ), Abuse of Alcohol (DC) Additional Instructions: You are discharged. Please eat a no added salt and low saturated fat diet. After discharge, please follow-up with your primary physician or Dr. Del Real for a nuclear stress test. Discussed risks and adverse effects of ETOH use and recommended cessation. Patient is discharged with the following medications: Aspirin 81 mg QD #30 tabs , Lipitor 10 mg PO DIN #30, Plavix 75 mg PO QD #30, Hyrochlorothiazide 25 mg PO QD #30, Lisinopril 40 mg PO QD #30, Metropolol 25 mg PO Q12 #60, Norvasc 5 mg PO QD #30. Scripts are sent to [facility]. Patient is given script for Tramadol 50 mg PO TID #15 tabs. Referrals: PCP,NO [Primary Care Provider] - <Areli Cordero - Last Filed: 06/28/16 16:02> Provider - Provider Date of Admission: 06/27/16 17:42 Attending physician: Areli Cordero MD Primary care physician: NAFISA PRIMARY CARE PROVIDER Hospital Course - Lab Results Lab Results: Most Recent Lab Values WBC 7.2 10^3/ul (4.5-11.0) 06/28/16 07:22 RBC 4.55 10^6/uL (3.5-6.1) 06/28/16 07:22 Hgb 14.6 gm/dL (14.0-18.0) 06/28/16 07:22 Hct 42.7 % (42.0-52.0) 06/28/16 07:22 MCV 93.8 fL (80.0-105.0) 06/28/16 07:22 MCH 32.1 pg (25.0-35.0) 06/28/16 07:22 MCHC 34.2 g/dl (31.0-37.0) 06/28/16 07:22 RDW 12.9 % (11.5-14.5) 06/28/16 07:22 Plt Count 217 10^3/uL (120.0-450.0) 06/28/16 07:22 MPV 9.2 fl (7.0-11.0) 06/28/16 07:22 Gran % 52.9 % (50.0-68.0) 06/28/16 07:22 Lymph % (Auto) 35.9 % (22.0-35.0) H 06/28/16 07:22 [place] % (Auto) 7.8 % (1.0-6.0) H 06/28/16 07:22 Eos % (Auto) 2.8 % (1.5-5.0) 06/28/16 07:22 Baso % (Auto) 0.6 % (0.0-3.0) 06/28/16 07:22 Gran # 3.81 (1.4-6.5) 06/28/16 07:22 Lymph # 2.6 (1.2-3.4) 06/28/16 07:22 [place] # 0.6 (0.1-0.6) 06/28/16 07:22 Eos # 0.2 (0.0-0.7) 06/28/16 07:22 Baso # 0.04 K/mm3 (0.0-2.0) 06/28/16 07:22 PT 11.2 Seconds (9.9-11.8) 06/26/16 10:40 INR 1.04 (0.93-1.08) 06/26/16 10:40 APTT 26.4 Seconds (23.7-30.8) 06/26/16 10:40 D-Dimer, Quantitative 0.19 mg/L FEU (0-0.50) 06/26/16 22:00 Sodium 135 mmol/L (132-148) 06/28/16 07:22 Potassium 3.5 mmol/L (3.6-5.0) L 06/28/16 07:22 Chloride 95 mmol/L (98-107) L 06/28/16 07:22 Carbon Dioxide 31 mmol/L (21-33) 06/28/16 07:22 Anion Gap 13 (10-20) 06/28/16 07:22 BUN 16 mg/dL (7-21) 06/28/16 07:22 Creatinine 0.9 mg/dL (0.5-1.4) 06/28/16 07:22 Est GFR ( Amer) > 60 06/28/16 07:22 Est GFR (Non-Af Amer) > 60 06/28/16 07:22 Random Glucose 96 mg/dL (70-110) 06/28/16 07:22 Hemoglobin A1c 6.0 % (4.2-6.5) 06/26/16 10:40 Calcium 9.0 mg/dL (8.4-10.5) 06/28/16 07:22 Magnesium 1.9 mg/dL (1.7-2.2) 06/26/16 10:40 Total Bilirubin 0.9 mg/dL (0.2-1.3) 06/28/16 07:22 AST 27 U/L (15-59) 06/28/16 07:22 ALT 30 U/L (7-56) 06/28/16 07:22 Alkaline Phosphatase 52 U/L (38-133) 06/28/16 07:22 Lactate Dehydrogenase 383 U/L (333-699) 06/27/16 07:41 Total Creatine Kinase 157 U/L (35-230) 06/27/16 07:41 CK-MB (CK-2) 3.9 ng/mL (0.0-3.6) H 06/26/16 10:40 CK-MB (CK-2) % Cancelled 06/26/16 10:40 Troponin I < 0.01 ng/mL 06/27/16 07:41 Total Protein 7.7 g/dL (5.8-8.3) 06/28/16 07:22 Albumin 3.9 g/dL (3.0-4.8) 06/28/16 07:22 Globulin 3.8 gm/dL 06/28/16 07:22 Albumin/Globulin Ratio 1.0 (1.1-1.8) L 06/28/16 07:22 Triglycerides 210 mg/dL (35-160) H 06/26/16 10:40 Cholesterol 140 mg/dL (130-200) 06/26/16 10:40 LDL Cholesterol Direct 56 mg/dL (0-129) 06/26/16 10:40 HDL Cholesterol 47 mg/dL (29-60) 06/26/16 10:40 Vitamin B12 315 pg/mL (239-931) 06/26/16 10:40 TSH 3rd Generation 1.18 mIU/mL (0.46-4.68) 06/26/16 10:40 Urine Color Yellow (YELLOW) 06/26/16 21:00 Urine Appearance Clear (CLEAR) 06/26/16 21:00 Urine pH 6.0 (4.7-8.0) 06/26/16 21:00 Ur Specific [place] 1.020 (1.005-1.035) 06/26/16 21:00 Urine Protein Negative mg/dL (<30 mg/dL) 06/26/16 21:00 Urine Glucose (UA) Negative mg/dL (NEGATIVE) 06/26/16 21:00 Urine Ketones Negative mg/dL (NEGATIVE) 06/26/16 21:00 Urine Blood Negative (NEGATIVE) 06/26/16 21:00 Urine Nitrate Negative (NEGATIVE) 06/26/16 21:00 Urine Bilirubin Negative (NEGATIVE) 06/26/16 21:00 Urine Urobilinogen 0.2 E.U./dL (<1 E.U./dL) 06/26/16 21:00 Ur Leukocyte Esterase Negative Zahida/uL (NEGATIVE) 06/26/16 21:00 Urine Opiates Screen Negative (NEGATIVE) 06/26/16 21:00 Urine Methadone Screen Negative (NEGATIVE) 06/26/16 21:00 Ur Barbiturates Screen Negative (NEGATIVE) 06/26/16 21:00 Ur Phencyclidine Scrn Negative (NEGATIVE) 06/26/16 21:00 Ur Amphetamines Screen Negative (NEGATIVE) 06/26/16 21:00 U Benzodiazepines Scrn Negative (NEGATIVE) 06/26/16 21:00 U Oth Cocaine Metabols Negative (NEGATIVE) 06/26/16 21:00 U Cannabinoids Screen Negative (NEGATIVE) 06/26/16 21:00 Attending/Attestation - Attestation I have personally seen and examined this patient.: Yes I have fully participated in the care of the patient.: Yes I have reviewed all pertinent clinical information, including history, physical exam and plan: Yes Notes (Text): I have seen and examined patient with the resident. Agree with the residents note with the following additions/ exception: This is 56 year old male with history of HTN, [place] in the past who got admitted for evaluation of chest pain, fingers numbness/ tingling and found to have uncontrolled hypertension upon admission. EKG and troponin were within normal limits. ECho is normal. Chest pain has resolved. BP has improved. Lopressor and norvasc added to HCTZ and lisinopril. Today BP has improved. 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 He was given all the information regarding stress test. All scripts given. Upon discharge patient will follow up with pmd of [facility] and Dr Del Real. Dr Areli Cordero
== END 2016-06-28 14:13 | disposition home or self-care (01) ==
LOC: ED 10:23 → UNDOADMOB 12:22 → ERH 12:22 → 2RSO 14:29 → ERH 14:29 → MERGE 06-27 17:42 → OBSVTOIN 06-27 17:42 → INTOOBSV 06-27 17:42 → UNDODISOB 06-28 14:13
PROVIDERS: ADMIT Internal Medicine; ATTEND Hospitalist
DX: I10 Essential (primary) hypertension (principal); R07.9 Chest pain, unspecified; I25.10 Atherosclerotic heart disease of native coronary artery without angina pectoris; I25.2 Old myocardial infarction; I45.10 Unspecified right bundle-branch block; G89.29 Other chronic pain; M54.9 Dorsalgia, unspecified; Z90.49 Acquired absence of other specified parts of digestive tract; Z79.899 Other long term (current) drug therapy; Z79.82 Long term (current) use of aspirin; Z79.02 Long term (current) use of antithrombotics/antiplatelets; Z82.49 Family history of ischemic heart disease and other diseases of the circulatory system
CPT/HCPCS: 36415; 71010; 80053; 80061; 81003; 82550; 82553; 82607; 83036; 83615; 83735; 84443; 84484; 85025; 85378; 85610; 85730; 93005; 93306; 99285; G0378; G0480; J1650

== ENCOUNTER 2017-11-04 17:24 | Emergency (ER) | payer MEDICARE ==
[2017-11-04 17:36] VITALS: RESP 18; TEMP 97.8; BMI 31.3
--- NOTE | 2017-11-04 17:59 | ED PDOC ---
Arrival/HPI - General Chief Complaint: Finger,Hand,&Wrist Time Seen by Provider: 11/04/17 17:38 Historian: Patient - History of Present Illness Narrative History of Present Illness (Text): 11/04/17 17:15 A 57 y/o w/ no significant pmhx presents to the ED complaining of right hand pain since yesterday. Patient reports he was working his car yesterday was the mckinney of the car slammed down on his ring finger. Patient sustained a hematoma underneath ring finger. Patient reports he noticed pain worsening today and had a decreased ability to grasp objects. Patient denies taking any medication for pain. Patient denies any fever, chills, chest pain, shortness of breath, nausea , vomiting, diarrhea, urinary symptoms, back pain, neck pain, headache, dizziness, or any other complaints. Time/Duration: Other (yesterday) Symptom Onset: Sudden Activities at Onset: Light Context: Home Past Medical History - Provider Review Nursing Documentation Reviewed: Yes - Infectious Disease Hx of Infectious Diseases: None - Cardiac Hx Cardiac Disorders: Yes Hx VA: Yes Hx Hypertension: Yes - Pulmonary Hx Respiratory Disorders: No - Neurological Hx Neurological Disorder: No - HEENT Hx HEENT Disorder: No (WEARS RX GLASSES) - Renal Hx Renal Disorder: No - Endocrine/Metabolic Hx Endocrine Disorders: No - Hematological/Oncological Hx Blood Disorders: No - Musculoskeletal/Rheumatological Hx Back Pain: Yes - Gastrointestinal Hx Gastrointestinal Disorders: Yes (APPENDECTOMY) - Genitourinary/Gynecological Hx Genitourinary Disorders: No - Psychiatric Hx Substance Use: No - Surgical History Hx Appendectomy: Yes Other/Comment: disc surgery x7 - Anesthesia Hx Anesthesia Reactions: No Hx Malignant Hyperthermia: No - Suicidal Assessment Feels Threatened In Home Enviroment: No Family/Social History - Physician Review Nursing Documentation Reviewed: Yes Family/Social History: Unknown Family HX Smoking Status: Never Smoked Hx Alcohol Use: Yes (DRINKS OCCASIONALLY. LAST DRANK LAST WEEK'RHUM) Hx Substance Use: No Allergies/Home Meds Allergies/Adverse Reactions: Allergies No Known Allergies Allergy (Verified 12/20/15 10:46) Review of Systems - Physician Review All systems were reviewed & negative as marked: Yes - Review of Systems Constitutional: absent: Fevers, Night Sweats Respiratory: absent: SOB Cardiovascular: absent: Chest Pain Gastrointestinal: absent: Diarrhea, Nausea, Vomiting Genitourinary Male: absent: Urinary Output Changes Musculoskeletal: Other (pain in right hand). absent: Arthralgias, Back Pain, Neck Pain, Joint Swelling, Myalgias Skin: absent: Cellulitis Neurological: absent: Headache, Dizziness Physical Exam Vital Signs Reviewed: Yes Vital Signs Temp Pulse Resp BP Pulse Ox 11/04/17 20:17 78 18 124/76 99 11/04/17 17:43 145/95 H 11/04/17 17:42 97.8 F 96 H 18 168/112 H 97 11/04/17 17:36 97.8 F 96 H 18 168/112 H 97 Temperature: Afebrile Blood Pressure: Hypertensive Pulse: Tachycardic Respiratory Rate: Normal Appearance: Positive for: Well-Appearing, Non-Toxic, Comfortable Pain Distress: None Mental Status: Positive for: Alert and Oriented X 3 - Systems Exam Head: Present: Atraumatic, Normocephalic Pupils: Present: PERRL Extroacular Muscles: Present: EOMI Conjunctiva: Present: Normal Mouth: Present: Moist Mucous Membranes Neck: Present: Normal Range of Motion Respiratory/Chest: Present: Clear to Auscultation, Good Air Exchange. No: Respiratory Distress, Accessory Muscle Use Cardiovascular: Present: Regular Rate and Rhythm, Normal S1, S2. No: Murmurs Abdomen: No: Tenderness, Distention, Peritoneal Signs Back: Present: Normal Inspection Upper Extremity: Present: NORMAL PULSES (palpable radial pulse), Other (fingers held in extension passively; ecchymosis to nail bed ). No: Cyanosis, Edema, Deformity (nail intact ) Lower Extremity: Present: Normal Inspection. No: Edema Neurological: Present: GCS=15, CN II-XII Intact, Speech Normal Skin: Present: Warm, Dry, Normal Color. No: Rashes Psychiatric: Present: Alert, Oriented x 3, Normal Insight, Normal Concentration Medical Decision Making ED Course and Treatment: 11/04/17 18:25 Impression: 57 y/o w/ no significant pmhx presents to the ED complaining of right hand pain Differential Diagnosis included but are not limited to: - paranychia - subungal hematoma - felon Plan: -- Xray of Right hand 4th digit -- Reassess and disposition Prior Visits: Notes and results from previous visits were reviewed. Progress Notes: 11/04/17 19:04 Dictator: Mani Pinto MD Procedure: Right ring finger radiographs Impression: crush injury to tuft of 4th distal phalanx 11/04/17 19:08 Crush injury seen on Xray, call was placed to Dr. Palafox. Findings explained to patient. Awaiting call back from Dr. Palafox. 11/04/17 19:[address] Palafox, who is aware of patient in emergency department and offers patient the option of waiting for Dr. Palafox to come to emergency room or place finger in splint, prescribe antibiotics and follow up in doctor's office. 11/04/17 19:41 Patient desires to go home, will have finger splint placed and will receive script for antibiotics. - RAD Interpretation Radiology Orders: 11/04/17 17:38 HAND RIGHT 4TH DIGIT (FINGER) [RAD] Stat - Scribe Statement The provider has reviewed the documentation as recorded by the Scribe Mary Victor All medical record entries made by the Scribe were at my direction and personally dictated by me. I have reviewed the chart and agree that the record accurately reflects my personal performance of the history, physical exam, medical decision making, and the department course for this patient. I have also personally directed, reviewed, and agree with the discharge instructions and disposition. Disposition/Present on Arrival - Present on Arrival Any Indicators Present on Arrival: No History of DVT/PE: No History of Uncontrolled Diabetes: No Urinary Catheter: No History of Decub. Ulcer: No History Surgical Site Infection Following: None - Disposition Have Diagnosis and Disposition been Completed?: Yes Diagnosis: Crushing injury of finger of right hand Disposition: HOME/ ROUTINE Disposition Time: 19:41 Patient Plan: Discharge Condition: STABLE Discharge Instructions (ExitCare): Crush Injury (DC), Common Finger Injuries ( DC) Print Language: CITIZEN OF [place] Additional Instructions: PLEASE FOLLOW UP WITH DR. PALAFOX(HAND SURGERY) THIS WEEK. OFFICE ADDRESS [address] [place] [address]([address]) [place] [address] T:[phone] F:[phone] [place] [address] [id number] T: [phone] F: [phone] Prescriptions: Cephalexin [cephalexin] 500 mg PO BID 10 Days #20 cap Referrals: FAMILY PROVIDER,NO [Primary Care Provider] - Follow up with primary Alethea Palafox MD [Staff Provider] - Follow up with primary Forms: Client Outlook (N[place]ian)
--- NOTE | 2017-11-04 18:54 | RAD ---
Date of service: 11/04/2017 PROCEDURE: Right ring finger radiographs. HISTORY: trauma to ring finger yesterday w/ pain today COMPARISON: None. TECHNIQUE: AP radiograph of the right hand, as well as spot oblique and lateral images of ring finger were obtained. FINDINGS: RIGHT RING FINGER: Crush injury to tuft of 4th distal phalanx. Comminuted. Remainder of the right hand (as seen on the AP view) grossly unremarkable. JOINTS: Normal. SOFT TISSUES: Normal. OTHER FINDINGS: None. IMPRESSION: Crush injury to tuft of 4th distal phalanx.
[2017-11-04 20:17] VITALS: BP 124/76; PULSE 78; O2SAT 99
== END 2017-11-04 20:18 | disposition home or self-care (01) ==
LOC: ED 17:24
DX: S67.194A Crushing injury of right ring finger, initial encounter (principal); W23.0XXA Caught, crushed, jammed, or pinched between moving objects, initial encounter; I10 Essential (primary) hypertension